=== PATIENT | male | born 1955 | race Caucasian/White ===

== ENCOUNTER 2019-09-15 10:27 | Outpatient (CLI) | payer MEDICARE, MEDICAID, SELFPAY ==
--- NOTE | 2019-09-15 11:30 | NEURO_ITS ---
Patient Number: [id number] Impression: # Complains of gait dysfunction. 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 # Needle/EMG exam not done dut to extreme edema and pustulant drainage. Nerve Conduction Studies Anti Sensory Summary Table Stim Site NR Peak (ms) P-T Amp (?V) Site1 Site2 Delta-P (ms) Dist (cm) Demario (m/s) Left Sup Fibular Anti Sensory (Ant Lat Mall) NO RESPONSE 14 cm NR 14 cm Ant Lat Mall 16.0 Right Sup Fibular Anti Sensory (Ant Lat Mall) 14 cm 4.7 6.2 14 cm Ant Lat Mall 4.7 16.0 34 Left Sural Anti Sensory (Lat Mall) NO RESPONSE Calf NR Calf Lat Mall 16.0 Right Sural Anti Sensory (Lat Mall) Calf 5.1 11.4 Calf Lat Mall 5.1 16.0 31 Motor Summary Table Stim Site NR Onset (ms) O-P Amp (mV) Site1 Site2 Delta-0 (ms) Dist (cm) Demario (m/s) Left Peroneal Motor (Vastus Med) NO RESPONSE Ankle NR Popit NR Right Peroneal Motor (Vastus Med) NO RESPONSE Ankle NR Popit NR Left Tibial Motor (Abd Denis Brev) Ankle 7.5 0.7 Knee Ankle 12.4 40.0 32 Knee 19.9 1.1 Right Tibial Motor (Abd Denis Brev) Ankle 7.3 2.0 Knee Ankle 10.8 40.0 37 Knee 18.1 1.2 F Wave Studies NR F-Lat (ms) L-R F-Lat (ms) Left Peroneal (Mrkrs) (EDB) NO RESPONSE NR Right Peroneal (Mrkrs) (EDB) NO RESPONSE NR Left Tibial (Mrkrs) (Abd Hallucis) 64.53 0.40 Right Tibial (Mrkrs) (Abd Hallucis) 64.13 0.40 MTDD
== END 2019-09-15 10:28 | disposition home or self-care (01) ==
PROVIDERS: PCP Internal Medicine Infectious Disease; Visit Provider Internal Medicine Infectious Disease
DX: G62.9 Polyneuropathy, unspecified (principal)
CPT/HCPCS: 95910